=== PATIENT | male | born 1960 | race Caucasian/White ===

== ENCOUNTER → 2024-07-31 | Outpatient (CLI) | payer MEDICAID, SELFPAY ==
--- NOTE | 2024-07-31 13:11 | WOUNDNOTE ---
Pt was referred to this nurse for further ostomy teaching. pt has had ostomy for approx 3 months and was not able to get home health care at home. Pt just wanted to be sure he was changing his appliance correctly. pt is currently using a 2 piece flat [employer] appliance with a high volume pouch. pt uses adhesive remover to remove the appliance. pt had been cleaning around the appliance with bath wipes. educated patient that the bath wipes add a protective film on the skin that could prevent the appliances from adhering well to the skin. pt aware to use just warm water or if using soap and water would prefer Dial or Ivory soap since they have less oils in them. Pt was able to demonstrate how he changes the appliance. the stoma is well budded and measures approx 1 1/4. peristomal skin is intact. assured patient that he is doing well with the appliance changes and pt would like continue what he currently has. Pt gets supplies from [place] and denies having any trouble getting the supplies. Pt very appreciative of visit and is aware to call if other concerns or questions arise.
== END | disposition home or self-care (01) ==
LOC: ET 01-22 16:07
DX: Z93.3 Colostomy status (principal)
CPT/HCPCS: 99211; G0463